=== PATIENT | male | born 1965 | race Caucasian/White ===

== ENCOUNTER 2017-06-25 21:22 | Emergency (ER) | payer OTHER ==
[~2017-06-25] VITALS: Ht 170.2 cm; Wt 113.4 kg
--- NOTE | 2017-06-25 21:41 | NUR ---
MSE COMPLETED. PT REFUSED CARE. PT MEDICALLY CLEARED. CLARISSA THEN TOOK PT IN CUSTODY.
[2017-06-25] MEDS ORDERED: BP MED (21:45)
[2017-06-25] MEDS ORDERED: PLAVIX (21:45)
[2017-06-25 21:47] VITALS: BP 150/120
== END 2017-06-25 21:48 ==
LOC: ER 21:24
DX: R45.851 Suicidal ideations (principal)
CPT/HCPCS: 99285; A4663